=== PATIENT | male | born 1980 | race Caucasian/White ===

== ENCOUNTER → 2025-03-03 | Outpatient (CLI) | payer SELFPAY ==
--- NOTE | 2025-03-03 12:37 | RAD_ITS ---
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 COMPARISON: No relevant prior studies available. FINDINGS: VERTEBRAE: Unremarkable. No acute fracture. Normal sagittal alignment. No instability. SACRUM/COCCYX: Unremarkable as visualized. No acute fracture. DISC SPACES: No acute findings. No significant narrowing. SOFT TISSUES: Unremarkable. GASTROINTESTINAL TRACT: Fecal retention in the colon consistent with constipation. RAD/L/S Spine Min 4 Views IMPRESSION: Fecal retention in the colon consistent with constipation. Reading Location: [facility]
--- NOTE | 2025-03-03 12:40 | RAD_ITS ---
PROCEDURE: THORACIC SPINE 3 VIEWS 03/03/2025 REASON FOR EXAM: SEGMENTAL AND SOMATIC DYSFUNCTION OF THORACIC REGION TECHNIQUE: Four views of the thoracic spine were obtained. FINDINGS: There is evidence of disc space narrowing and spondylosis in the mid dorsal region. No evidence of compression fracture. Normal kyphosis. RAD/Thoracic Spine 3 Views IMPRESSION: Disc space narrowing and spondylosis in the mid dorsal region. Reading Location: [facility]
== END | disposition home or self-care (01) ==
PROVIDERS: Referring Provider Chiropractor Orthopedic; Visit Provider Chiropractor Orthopedic
DX: M99.02 Segmental and somatic dysfunction of thoracic region (principal); M99.03 Segmental and somatic dysfunction of lumbar region
CPT/HCPCS: 72072; 72110